=== PATIENT | male | born 1985 | race Caucasian/White ===

== ENCOUNTER 2017-02-02 22:00 | Emergency (ER) | payer OTHER ==
--- NOTE | 2017-02-03 00:24 | DIAGNOSTIC IMAGING REPORT ---
PROCEDURE: XR HAND 3 OR 4 VIEWS - LEFT INDICATION: TRAUMA/INJURY TECHNIQUE: Three views. COMPARISON: None. FINDINGS: Osseous structures and joint spaces are normal. IMPRESSION: 1. Normal left hand.
--- NOTE | 2017-02-03 01:39 | ED CLINICAL REPORT ---
Clinical Report - Physicians/Mid Levels [facility] [address] [place] [address] 02/02/2017 22:00 Patient: JESUS LOYOLA Time Seen: 00:53. Arrived- By private vehicle. Historian- patient. HISTORY OF PRESENT ILLNESS Chief Complaint: Injury to the left thumb. The injury happened about 1 month ago. 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 Yesterday jammed thumb into door). Patient is experiencing mild pain that has recently become worse. No other injury. REVIEW OF SYSTEMS The patient has had new onset of pain-related weakness of the left thumb (moderate). All systems otherwise negative, except as recorded above. PAST HISTORY The patient's dominant hand is the right. Problems: Epididymitis. Additional Surgeries: Vasectomy. Medications: None. Allergies: Penicillins. SOCIAL HISTORY Current every day heavy tobacco smoker (cigarette)- less than 1 pack per day. No alcohol use or drug use. FAMILY HISTORY No significant family medical history. ADDITIONAL NOTES The nursing notes have been reviewed. PHYSICAL EXAM Vital Signs: 02/02/2017 23:54 BP: 109/79. HR: 75. RR: 18. O2 saturation: 97%. Temp: 98.1 F. Pain level now: 2/10. Have been reviewed. Appearance: Alert. Head: Head atraumatic. Eyes: Pupils equal, round and reactive to light. ENT: Pharynx normal. Neck: Neck supple. CVS: Normal heart rate and rhythm. Heart sounds normal. Respiratory: No respiratory distress. Breath sounds normal. Abdomen: No visible injury. Soft and nontender. Bowel sounds normal. No organomegaly. No mass. Back: Normal inspection. Skin: Skin warm and dry. Skin intact. Extremities: Left thumb: limited movement secondary to pain (ligamentous laxity noted). No signs of infection present. Neuro, Vascular and Tendons: Vascular status intact. Sensation intact. LABS, X-RAYS, AND EKG X-Rays: Left hand negative. The X-rays were independently viewed by me. PROGRESS AND PROCEDURES Course of Care: Patient is stable. Patient/family counseled. Old medical records reviewed. Disposition: Discharged. Condition: stable. CLINICAL IMPRESSION Moderate gamekeeper's thumb injury left hand. INSTRUCTIONS Apply ice for 20 minutes four times a day until released. Don't apply ice directly to skin and don't use while asleep. Wear fiberglass splint until released. No driving or operating machinery while taking medication. Warnings: COMPLICATIONS: Complications from this condition include: possible injury to a nerve, possible injury to a tendon and possible injury to a ligament. Future problems may include loss of function, pain and deformity. It is important to follow up with a physician for further evaluation and treatment. GENERAL WARNINGS: Return or contact your physician immediately if your condition worsens or changes unexpectedly, if not improving as expected, or if other problems arise. Prescription Medications: Ultram 50 mg: take 1-2 orally every 6 hours as needed for pain. Dispense fifteen (15). No refills. Substitution is permissible. Understanding of the discharge instructions verbalized by patient. [facility]up with: [facility], , [address], [facility], [address] Follow up Monday in four days. Call for an appointment. (Electronically signed by Kei Valiente MD 02/08/2017 21:09)
--- NOTE | 2017-02-03 01:39 | ED NURSING NOTES ---
Clinical Report - Nurses [facility] [address] [place] [address] 02/02/2017 22:00 Patient: JESUS LOYOLA TRIAGE Triage time 22:11. Acuity: LEVEL 5. Chief Complaint: INJURY TO LEFT HAND. INJURY TO THE LEFT THUMB. --22:15 Ashlee Angel R.N. Acuity: LEVEL 4. --23:57 Timothy Falcon R.N. 23:54 02/02/17. BP: 109/79. HR: 75. RR: 18. O2 saturation: 97% on room air. Temp: 98.1 F (oral). Pain level now: 11/25. --23:57 Timothy Falcon R.N. Weight: 72.5 kg stated. Height/Length: 68 inches Per Patient. BMI: 24.3. --22:14 Ashlee Angel R.N. Medications None. --22:14 Ashlee Angel R.N. Allergies Penicillins. --22:14 Ashlee Angel R.N. History Arrived by private vehicle. Historian: patient. Accompanied by friend. This occurred yesterday. Occurred at home. 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 Yesterday jammed thumb into door). PAST MEDICAL HX: Tetanus status: up-to-date. SOCIAL HX: Current every day heavy tobacco smoker, start date 1996- less than 1 pack per day. No alcohol use or drug use. --22:15 Ashlee Angel R.N. Accompanied by friend. --23:57 Timothy Falcon R.N. Interventions To waiting room. --22:15 Ashlee Angel R.N. ID band on patient. To treatment room. --23:57 Timothy Falcon R.N. PHYSICAL ASSESSMENT GENERAL / NEURO / PSYCH: Oriented X 4. Alert. Appears in no acute distress. ( swelling over left thumb, painful to touch and motion). EXTREMITIES: Capillary refill is less than 2 seconds in the extremities. SKIN: Skin intact. Skin is warm and dry. --23:58 Timothy Falcon R.N. NURSING PROGRESS NOTES Short arm and thumb spica fiberglass upper extremity splint applied to right forearm and wrist. Distal pulses intact, sensation intact and motor within normal limits. --01:35 Kareem Castillo, LISSETTE Building Maintenance Technician. DISPOSITION / DISCHARGE Departure time: :59. Condition at departure: stable. No learning barriers present. Discharge instructions provided and reviewed with the patient. Reviewed warnings. Reviewed medication(s) side effects, precautions, dosing and course information. Prescription(s) given to the patient. Treatments reviewed. Reviewed referrals for followup. Work note given. Patient verbalized understanding. Written instructions provided in French. The patient was discharged home and accompanied by ad taker. He left the Emergency Department ambulatory and via private vehicle. Shoemaker Apprentice driving. --:59 Timothy Falcon R.N. 01:57 02/03/17. BP: 126/65. HR: 70. RR: 17. O2 saturation: 99% on room air. Additional comments: no change in pain since last. --01:59 Timothy Falcon R.N. Locked/Released at 02/03/2017 2:00 by Timothy Falcon R.N.
--- NOTE | 2017-02-03 01:39 | ED ORDER SUMMARY ---
..... Patient: JESUS LOYOLA OrderSheet [facility] VisitID: [id number] [address] [place] [address] 31y, M Registration Date/Time: 02/02/2017 ORDER SHEET Weight: 72.5 kg (stated) Allergies: Penicillins GENERAL ORDERS: Hand 3 or 4V Left Urgent (23:53 02/02/2017 Yolanda R.NNestor per protocol) (Ack 23:55 SRedmond) (0:21 GUnger) Splint (Finger) (Left) (Thumb) (Fiberglass) (thumb spica) (01:13 02/03/2017 Kendrick JONES) (Ack 1:24 CHagraquel ER Marketing Underwriter) (1:34 [facility]) MEDICATION ORDERS: IV FLUIDS: ORDER SHEET NOTES: [Electronically signed by Timothy Falcon R.N. (02:00 02/03/2017)] [Electronically signed by Kei Valiente MD (21:09 02/08/2017)] [Electronically locked/signed by Timothy Falcon R.N. (02:00 02/03/2017)]
--- NOTE | 2017-02-03 01:39 | ED CLINICAL REPORT ---
Clinical Report - Physicians/Mid Levels [facility] [address] [place] [place] [address] 02/02/2017 22:00 Patient: JESUS LOYOLA Time Seen: 00:53. Arrived- By private vehicle. Historian- patient. HISTORY OF PRESENT ILLNESS Chief Complaint: Injury to the left thumb. The injury happened about 1 month ago. 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 Yesterday jammed thumb into door). Patient is experiencing mild pain that has recently become worse. No other injury. REVIEW OF SYSTEMS The patient has had new onset of pain-related weakness of the left thumb (moderate). All systems otherwise negative, except as recorded above. PAST HISTORY The patient's dominant hand is the right. Problems: Epididymitis. Additional Surgeries: Vasectomy. Medications: None. Allergies: Penicillins. SOCIAL HISTORY Current every day heavy tobacco smoker (cigarette)- less than 1 pack per day. No alcohol use or drug use. FAMILY HISTORY No significant family medical history. ADDITIONAL NOTES The nursing notes have been reviewed. PHYSICAL EXAM Vital Signs: 02/02/2017 23:54 BP: 109/79. HR: 75. RR: 18. O2 saturation: 97%. Temp: 98.1 F. Pain level now: 2/10. Have been reviewed. Appearance: Alert. Head: Head atraumatic. Eyes: Pupils equal, round and reactive to light. ENT: Pharynx normal. Neck: Neck supple. CVS: Normal heart rate and rhythm. Heart sounds normal. Respiratory: No respiratory distress. Breath sounds normal. Abdomen: No visible injury. Soft and nontender. Bowel sounds normal. No organomegaly. No mass. Back: Normal inspection. Skin: Skin warm and dry. Skin intact. Extremities: Left thumb: limited movement secondary to pain (ligamentous laxity noted). No signs of infection present. Neuro, Vascular and Tendons: Vascular status intact. Sensation intact. LABS, X-RAYS, AND EKG X-Rays: Left hand negative. The X-rays were independently viewed by me. PROGRESS AND PROCEDURES Course of Care: Patient is stable. Patient/family counseled. Old medical records reviewed. Disposition: Discharged. Condition: stable. CLINICAL IMPRESSION Moderate gamekeeper's thumb injury left hand. INSTRUCTIONS Apply ice for 20 minutes four times a day until released. Don't apply ice directly to skin and don't use while asleep. Wear fiberglass splint until released. No driving or operating machinery while taking medication. Warnings: COMPLICATIONS: Complications from this condition include: possible injury to a nerve, possible injury to a tendon and possible injury to a ligament. Future problems may include loss of function, pain and deformity. It is important to follow up with a physician for further evaluation and treatment. GENERAL WARNINGS: Return or contact your physician immediately if your condition worsens or changes unexpectedly, if not improving as expected, or if other problems arise. Prescription Medications: Ultram 50 mg: take 1-2 orally every 6 hours as needed for pain. Dispense fifteen (15). No refills. Substitution is permissible. Understanding of the discharge instructions verbalized by patient. Follow-up with: [facility], , [address], [facility], [address] Follow up Monday in four days. Call for an appointment. (Electronically signed by Kei Valiente MD 02/08/2017 21:09)
--- NOTE | 2017-02-03 01:39 | ED NURSING NOTES ---
Clinical Report - Nurses [facility] [address] [place] [address] 02/02/2017 22:00 Patient: JESUS LOYOLA TRIAGE Triage time 22:11. Acuity: LEVEL 5. Chief Complaint: INJURY TO LEFT HAND. INJURY TO THE LEFT THUMB. --22:15 Ashlee Angel R.N. Acuity: LEVEL 4. --23:57 Timothy Falcon R.N. 23:54 02/02/17. BP: 109/79. HR: 75. RR: 18. O2 saturation: 97% on room air. Temp: 98.1 F (oral). Pain level now: 11/25. --23:57 Timothy Falcon R.N. Weight: 72.5 kg stated. Height/Length: 68 inches Per Patient. BMI: 24.3. --22:14 Ashlee Angel R.N. Medications None. --22:14 Ashlee Angel R.N. Allergies Penicillins. --22:14 Ashlee Angel R.N. History Arrived by private vehicle. Historian: patient. Accompanied by friend. This occurred yesterday. Occurred at home. 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 Yesterday jammed thumb into door). PAST MEDICAL HX: Tetanus status: up-to-date. SOCIAL HX: Current every day heavy tobacco smoker, start date 1996- less than 1 pack per day. No alcohol use or drug use. --22:15 Ashlee Angel R.N. Accompanied by friend. --23:57 Timothy Falcon R.N. Interventions To waiting room. --22:15 Ashlee Angel R.N. ID band on patient. To treatment room. --23:57 Timothy Falcon R.N. PHYSICAL ASSESSMENT GENERAL / NEURO / PSYCH: Oriented X 4. Alert. Appears in no acute distress. ( swelling over left thumb, painful to touch and motion). EXTREMITIES: Capillary refill is less than 2 seconds in the extremities. SKIN: Skin intact. Skin is warm and dry. --23:58 Timothy Falcon R.N. NURSING PROGRESS NOTES Short arm and thumb spica fiberglass upper extremity splint applied to right forearm and wrist. Distal pulses intact, sensation intact and motor within normal limits. --01:35 Kareem Castillo, LISSETTE Telegraph Office Route Aide. DISPOSITION / DISCHARGE Departure time: :59. Condition at departure: stable. No learning barriers present. Discharge instructions provided and reviewed with the patient. Reviewed warnings. Reviewed medication(s) side effects, precautions, dosing and course information. Prescription(s) given to the patient. Treatments reviewed. Reviewed referrals for followup. Work note given. Patient verbalized understanding. Written instructions provided in Turkish. The patient was discharged home and accompanied by devulcanizer charger. He left the Emergency Department ambulatory and via private vehicle. Turning And Beading Machine Operator driving. --:59 Timothy Falcon R.N. 01:57 02/03/17. BP: 126/65. HR: 70. RR: 17. O2 saturation: 99% on room air. Additional comments: no change in pain since last. --01:59 Timothy Falcon R.N. Locked/Released at 02/03/2017 2:00 by Timothy Falcon R.N.
--- NOTE | 2017-02-03 01:39 | ED ORDER SUMMARY ---
..... Patient: JESUS LOYOLA OrderSheet [facility] VisitID: [id number] [address] [place] [address] 31y, M Registration Date/Time: 02/02/2017 ORDER SHEET Weight: 72.5 kg (stated) Allergies: Penicillins GENERAL ORDERS: Hand 3 or 4V Left Urgent (23:53 02/02/2017 Yolanda R.NNestor per protocol) (Ack 23:55 SRedmond) (0:21 GUnger) Splint (Finger) (Left) (Thumb) (Fiberglass) (thumb spica) (01:13 02/03/2017 Kendrick JONES) (Ack 1:24 CHagraquel ER Mainframe Systems Administrator) (1:34 [facility] Systems [facility]) MEDICATION ORDERS: IV FLUIDS: ORDER SHEET NOTES: [Electronically signed by Timothy Falcon R.N. (02:00 02/03/2017)] [Electronically signed by Kei Valiente MD (21:09 02/08/2017)] [Electronically locked/signed by Timothy Falcon R.N. (02:00 02/03/2017)]
--- NOTE | 2017-02-08 21:10 | ED MED RECONCILIATION SUMMARY ---
Patient: JESUS LOYOLA Medication Reconciliation Report [facility] VisitID: [id number] [address] [place] [address] 31y, M Registration Date/Time: 02/02/2017 Weight: 72.5 kg Height/Length: 68 in. BMI: 24.3 ALLERGIES: Penicillins The patient's Home Medications are listed below: NONE. The source(s) of the original Home Medication information: Not obtained. The following Medications were given to the patient in the Emergency Department: None. The following Medications were prescribed to the patient: Ultram 50 mg: take 1-2 orally every 6 hours as needed for pain. Dispense fifteen (15). No refills. Substitution is permissible. -- Kei Valiente MD
--- NOTE | 2017-02-08 21:10 | ED MAR SUMMARY ---
..... Medication Administration Record [facility] [address], [place] [id number] Patient: JESUS LOYOLA Visit ID: [id number] 31y, M Weight: 72.5 kg Height/Length: 68 in BMI: 24.3 ALLERGIES: Penicillins
--- NOTE | 2017-02-08 21:10 | ED DISCHARGE INSTRUCTIONS ---
Patient: JESUS LOYOLA General Instructions [facility] VisitID: [id number] [address] [place] [address] 31y, M Registration Date/Time: 02/02/2017 Moderate gamekeeper's thumb injury left hand. INSTRUCTIONS Apply ice for 20 minutes four times a day until released. Don't apply ice directly to skin and don't use while asleep. Wear fiberglass splint until released. No driving or operating machinery while taking medication. Warnings: COMPLICATIONS: Complications from this condition include: possible injury to a nerve, possible injury to a tendon and possible injury to a ligament. Future problems may include loss of function, pain and deformity. It is important to follow up with a physician for further evaluation and treatment. GENERAL WARNINGS: Return or contact your physician immediately if your condition worsens or changes unexpectedly, if not improving as expected, or if other problems arise. Prescription Medications: Ultram 50 mg: take 1-2 orally every 6 hours as needed for pain. Dispense fifteen (15). No refills. Substitution is permissible. Understanding of the discharge instructions verbalized by patient. Follow-up with: [facility], , [address], [place], [address] Follow up Monday in four days. Call for an appointment. ADDITIONAL INFORMATION Splint Care, Fiberglass The following will help you care for your splint: It will take up totwo hours for your fiber glass splint to fully harden; therefore, do notapply any pressure on it during that time or else it may break. To prevent swelling under the splint, for thefirst 48 hours: If the splint is on yourarm, keep it in a sling or raised to shoulder level when sitting or standing; rest it on your chest or on a pillow at your side when lying down. If the splint is on yourfoot, keep it propped up above the level of your waist when sitting or lying. Avoid crutch walking as much as possible during this time. Keep the splint/cast dry at all times. Bathe with your splint/cast well out of the water, protected with a large plastic bag, rubber-banded at the top end. If a fiberglass cast or splint gets wet, you can dry it with a hair-dryer. Follow-up care Follow up with your doctor or this facility as advised. When to seek medical care Get prompt medical attention if any of the following occur: Bad odor from the splint or wound-fluid stains the splint The splint cracks or remains wet over 24 hours Increasing tightness or pressure under the splint Fingers or toes become swollen, cold, blue, numb or tingly Increased pain under the splint Tramadol Hydrochloride Oral tablet What is this medicine? TRAMADOL (TRA ma dole) is a pain reliever. It is used to treat moderate to severe pain in adults. How should I use this medicine? Take this medicine by mouth with a full glass of water. Follow the directions on the prescription label. If the medicine upsets your stomach, take it with food or milk. Do not take more medicine than you are told to take. Talk to your field services manager regarding the use of this medicine in children. Special care may be needed. What side effects may I notice from receiving this medicine? Side effects that you should report to your doctor or health day care worker as soon as possible: allergic reactions like skin rash, itching or hives, swelling of the face, lips, or tongue breathing difficulties, wheezing confusion itching light headedness or fainting spells redness, blistering, peeling or loosening of the skin, including inside the mouth seizures Side effects that usually do not require medical attention (report to your doctor or health day care worker if they continue or are bothersome): constipation dizziness drowsiness headache nausea, vomiting What may interact with this medicine? Do not take this medicine with any of the following medications: MAOIs like Carbex, Eldepryl, Marplan, Nardil, and Parnate This medicine may also interact with the following medications: alcohol or medicines that contain alcohol antihistamines benzodiazepines bupropion carbamazepine or oxcarbazepine clozapine cyclobenzaprine digoxin furazolidone linezolid medicines for depression, anxiety, or psychotic disturbances medicines for migraine headache like almotriptan, eletriptan, frovatriptan, naratriptan, rizatriptan, sumatriptan, zolmitriptan medicines for pain like pentazocine, buprenorphine, butorphanol, meperidine, nalbuphine, and propoxyphene medicines for sleep muscle relaxants naltrexone phenobarbital phenothiazines like perphenazine, thioridazine, chlorpromazine, mesoridazine, fluphenazine, prochlorperazine, promazine, and trifluoperazine procarbazine warfarin What if I miss a dose? If you miss a dose, take it as soon as you can. If it is almost time for your next dose, take only that dose. Do not take double or extra doses. Where should I keep my medicine? Keep out of the reach of children. Store at room temperature between 15 and 30 degrees C (59 and 86 degrees F). Keep container tightly closed. Throw away any unused medicine after the expiration date. What should I tell my health care provider before I take this medicine? They need to know if you have any of these conditions: brain tumor depression drug abuse or addiction head injury if you frequently drink alcohol containing drinks kidney disease or trouble passing urine liver disease lung disease, asthma, or breathing problems seizures or epilepsy suicidal thoughts, plans, or attempt; a previous suicide attempt by you or a family member an unusual or allergic reaction to tramadol, codeine, other medicines, foods, dyes, or preservatives or trying to get breast-feeding What should I watch for while using this medicine? Tell your doctor or health day care worker if your pain does not go away, if it gets worse, or if you have new or a different type of pain. You may develop tolerance to the medicine. Tolerance means that you will need a higher dose of the medicine for pain relief. Tolerance is normal and is expected if you take this medicine for a long time. Do not suddenly stop taking your medicine because you may develop a severe reaction. Your body becomes used to the medicine. This does NOT mean you are addicted. Addiction is a behavior related to getting and using a drug for a non-medical reason. If you have pain, you have a medical reason to take pain medicine. Your doctor will tell you how much medicine to take. If your doctor wants you to stop the medicine, the dose will be slowly lowered over time to avoid any side effects. You may get drowsy or dizzy. Do not drive, use machinery, or do anything that needs mental alertness until you know how this medicine affects you. Do not stand or sit up quickly, especially if you are an older patient. This reduces the risk of dizzy or fainting spells. Alcohol can increase or decrease the effects of this medicine. Avoid alcoholic drinks. You may have constipation. Try to have a bowel movement at least every 2 to 3 days. If you do not have a bowel movement for 3 days, call your doctor or health day care worker. Your mouth may get dry. Chewing sugarless gum or sucking hard candy, and drinking plenty of water may help. Contact your doctor if the problem does not go away or is severe. You have been given the following additional information: Splint Care, Fiberglass Tramadol Hydrochloride Oral tablet No driving or operating machinery while taking medication. (Electronically signed by Kei Valiente MD 02/08/2017 21:09)
--- NOTE | 2017-02-08 21:10 | ED MAR SUMMARY ---
..... Medication Administration Record [facility] [address] [place], [place] [id number] Patient: JESUS LOYOLA Visit ID: [id number] 31y, M Weight: 72.5 kg Height/Length: 68 in BMI: 24.3 ALLERGIES: Penicillins
--- NOTE | 2017-02-08 21:10 | ED DISCHARGE INSTRUCTIONS ---
Patient: JESUS LOYOLA General Instructions [facility] VisitID: [id number] [address] [place] [address] 31[place], M Registration Date/Time: 02/02/2017 Moderate gamekeeper's thumb injury left hand. INSTRUCTIONS Apply ice for 20 minutes four times a day until released. Don't apply ice directly to skin and don't use while asleep. Wear fiberglass splint until released. No driving or operating machinery while taking medication. Warnings: COMPLICATIONS: Complications from this condition include: possible injury to a nerve, possible injury to a tendon and possible injury to a ligament. Future problems may include loss of function, pain and deformity. It is important to follow up with a physician for further evaluation and treatment. GENERAL WARNINGS: Return or contact your physician immediately if your condition worsens or changes unexpectedly, if not improving as expected, or if other problems arise. Prescription Medications: Ultram 50 mg: take 1-2 orally every 6 hours as needed for pain. Dispense fifteen (15). No refills. Substitution is permissible. Understanding of the discharge instructions verbalized by patient. Follow-up with: [facility], , [address], [place], [id number] Follow up Monday in four days. Call for an appointment. ADDITIONAL INFORMATION Splint Care, Fiberglass The following will help you care for your splint: It will take up totwo hours for your fiber glass splint to fully harden; therefore, do notapply any pressure on it during that time or else it may break. To prevent swelling under the splint, for thefirst 48 hours: If the splint is on yourarm, keep it in a sling or raised to shoulder level when sitting or standing; rest it on your chest or on a pillow at your side when lying down. If the splint is on yourfoot, keep it propped up above the level of your waist when sitting or lying. Avoid crutch walking as much as possible during this time. Keep the splint/cast dry at all times. Bathe with your splint/cast well out of the water, protected with a large plastic bag, rubber-banded at the top end. If a fiberglass cast or splint gets wet, you can dry it with a hair-dryer. Follow-up care Follow up with your doctor or this facility as advised. When to seek medical care Get prompt medical attention if any of the following occur: Bad odor from the splint or wound-fluid stains the splint The splint cracks or remains wet over 24 hours Increasing tightness or pressure under the splint Fingers or toes become swollen, cold, blue, numb or tingly Increased pain under the splint Tramadol Hydrochloride Oral tablet What is this medicine? TRAMADOL (TRA ma dole) is a pain reliever. It is used to treat moderate to severe pain in adults. How should I use this medicine? Take this medicine by mouth with a full glass of water. Follow the directions on the prescription label. If the medicine upsets your stomach, take it with food or milk. Do not take more medicine than you are told to take. Talk to your senior research manager regarding the use of this medicine in children. Special care may be needed. What side effects may I notice from receiving this medicine? Side effects that you should report to your doctor or health student career development specialist as soon as possible: allergic reactions like skin rash, itching or hives, swelling of the face, lips, or tongue breathing difficulties, wheezing confusion itching light headedness or fainting spells redness, blistering, peeling or loosening of the skin, including inside the mouth seizures Side effects that usually do not require medical attention (report to your doctor or health student career development specialist if they continue or are bothersome): constipation dizziness drowsiness headache nausea, vomiting What may interact with this medicine? Do not take this medicine with any of the following medications: MAOIs like Carbex, Eldepryl, Marplan, Nardil, and Parnate This medicine may also interact with the following medications: alcohol or medicines that contain alcohol antihistamines benzodiazepines bupropion carbamazepine or oxcarbazepine clozapine cyclobenzaprine digoxin furazolidone linezolid medicines for depression, anxiety, or psychotic disturbances medicines for migraine headache like almotriptan, eletriptan, frovatriptan, naratriptan, rizatriptan, sumatriptan, zolmitriptan medicines for pain like pentazocine, buprenorphine, butorphanol, meperidine, nalbuphine, and propoxyphene medicines for sleep muscle relaxants naltrexone phenobarbital phenothiazines like perphenazine, thioridazine, chlorpromazine, mesoridazine, fluphenazine, prochlorperazine, promazine, and trifluoperazine procarbazine warfarin What if I miss a dose? If you miss a dose, take it as soon as you can. If it is almost time for your next dose, take only that dose. Do not take double or extra doses. Where should I keep my medicine? Keep out of the reach of children. Store at room temperature between 15 and 30 degrees C (59 and 86 degrees F). Keep container tightly closed. Throw away any unused medicine after the expiration date. What should I tell my health care provider before I take this medicine? They need to know if you have any of these conditions: brain tumor depression drug abuse or addiction head injury if you frequently drink alcohol containing drinks kidney disease or trouble passing urine liver disease lung disease, asthma, or breathing problems seizures or epilepsy suicidal thoughts, plans, or attempt; a previous suicide attempt by you or a family member an unusual or allergic reaction to tramadol, codeine, other medicines, foods, dyes, or preservatives or trying to get breast-feeding What should I watch for while using this medicine? Tell your doctor or health student career development specialist if your pain does not go away, if it gets worse, or if you have new or a different type of pain. You may develop tolerance to the medicine. Tolerance means that you will need a higher dose of the medicine for pain relief. Tolerance is normal and is expected if you take this medicine for a long time. Do not suddenly stop taking your medicine because you may develop a severe reaction. Your body becomes used to the medicine. This does NOT mean you are addicted. Addiction is a behavior related to getting and using a drug for a non-medical reason. If you have pain, you have a medical reason to take pain medicine. Your doctor will tell you how much medicine to take. If your doctor wants you to stop the medicine, the dose will be slowly lowered over time to avoid any side effects. You may get drowsy or dizzy. Do not drive, use machinery, or do anything that needs mental alertness until you know how this medicine affects you. Do not stand or sit up quickly, especially if you are an older patient. This reduces the risk of dizzy or fainting spells. Alcohol can increase or decrease the effects of this medicine. Avoid alcoholic drinks. You may have constipation. Try to have a bowel movement at least every 2 to 3 days. If you do not have a bowel movement for 3 days, call your doctor or health student career development specialist. Your mouth may get dry. Chewing sugarless gum or sucking hard candy, and drinking plenty of water may help. Contact your doctor if the problem does not go away or is severe. You have been given the following additional information: Splint Care, Fiberglass Tramadol Hydrochloride Oral tablet No driving or operating machinery while taking medication. (Electronically signed by Kei Valiente MD 02/08/2017 21:09)
--- NOTE | 2017-02-08 21:10 | ED MED RECONCILIATION SUMMARY ---
Patient: JESUS LOYOLA Medication Reconciliation Report [facility] VisitID: [id number] [address] [place] [address] 31y, M Registration Date/Time: 02/02/2017 Weight: 72.5 kg Height/Length: 68 in. BMI: 24.3 ALLERGIES: Penicillins The patient's Home Medications are listed below: NONE. The source(s) of the original Home Medication information: Not obtained. The following Medications were given to the patient in the Emergency Department: None. The following Medications were prescribed to the patient: Ultram 50 mg: take 1-2 orally every 6 hours as needed for pain. Dispense fifteen (15). No refills. Substitution is permissible. -- Kei Valiente MD
== END 2017-02-03 02:00 | disposition home or self-care (01) ==
LOC: ED SRH 22:00
DX: S63.642A Sprain of metacarpophalangeal joint of left thumb, initial encounter (principal); W23.1XXA Caught, crushed, jammed, or pinched between stationary objects, initial encounter; Y93.89 Activity, other specified; Y92.9 Unspecified place or not applicable; Y99.9 Unspecified external cause status; F17.210 Nicotine dependence, cigarettes, uncomplicated; Z88.0 Allergy status to penicillin